=== PATIENT | male | born 1955 | race Caucasian/White ===

== ENCOUNTER → 2019-02-24 | Outpatient (CLI) | payer BC ==
--- NOTE | 2019-02-24 11:49 | CONS ---
CONSULTATION REASON FOR CONSULTATION: Sleep apnea. Angel is 64 and he is coming in to be evaluated for obstructive sleep apnea. His primary care physician is Dr. De La Cruz and he sees the doctor Jonathon Aiken DDS in [place], [place]. The patient has been having loud snoring and he has been quitting breathing on multiple occasions throughout the night and he grinds his teeth. In fact, he has a significant overbite which has caused crowding of the posterior oropharynx. He has had these issues for more than 10 years and he is coming in for further advice regarding this matter. He is very much interested in obtaining an oral appliance if sleep apnea is confirmed that he is working with his primary care physician. His current Ann[place] score is at 8. He goes to bed around midnight and wakes up at 8:30 am in the morning. He sleeps around 8 hours and his Ann[place] score is 3. Does not fall asleep while driving his car or performing routine day-to-day activities. He is healthy and no major comorbidities otherwise for now. PAST MEDICAL HISTORY: Negative. PAST SURGICAL HISTORY: Includes foot surgery. DRUG ALLERGIES: Not known. OUTPATIENT MEDICATIONS: None. SOCIAL HISTORY: The patient drinks 1 cup of coffee. Drinks alcohol socially. No history of substance abuse. No history of alcoholism. He is retired from [employer] and he is currently living in [facility]. FAMILY HISTORY: Negative for sleep apnea. REVIEW OF SYSTEMS: A 14-point review of system was done. No recent weight gain or weight loss. No insomnia. No nocturia. No anxiety or panic attacks, no palpitation, no heartburn or sweating or sleep talking. No sleepwalking. Denies waking up gasping for air. No restlessness in his lower extremities. He grinds his teeth occasionally. No anxiety. No depression. No claustrophobia. PHYSICAL EXAMINATION: BP is 143/90, pulse 74, respirations 14, temperature 98.1, saturation 98% on room air. Height is 5, 11, weight 224, and BMI is 30.8. Neck size is 17-1/4 inch. Annville score is a 3. GENERAL APPEARANCE: Calm, comfortable. HEENT: Atraumatic, normocephalic. NECK: Supple. There is no JVD. No goiter or neck masses. Mallampati class 4 and the patient has significant overbite with poor alignment of his upper and lower jaw. No macroglossia. No micrognathia. LUNGS: Clear to auscultation. HEART: Sounds regular rate and rhythm. Normal S1, S2. No S3, S4. No murmurs. ABDOMEN: Soft, nontender. No organomegaly. EXTREMITIES: No edema. No cyanosis or clubbing. NEUROLOGIC: Alert and oriented x3. There is no focal neurological deficits. PSYCH: Negative for anxiety or depression. SKIN: Negative for any wounds or ulceration. IMPRESSION: 1. Loud snoring with witnessed apneas. Consider obstructive sleep apnea. The patient has significant crowding of posterior pharynx with Mallampati class 4 and significant overbite. 2. Chronic back pain. PLAN: Will proceed with a home sleep study to assess the presence and severity of obstructive sleep apnea. Obviously, the patient has significant overbite and he could potentially benefit from an oral appliance should he be confirmed that he has a mild to moderate obstructive sleep apnea. He is working with a dentist, experiencing fitting these devices. For now, we are going to proceed with a home sleep study and assess the presence of the disease and decide accordingly if he is a candidate for oral device. MMODL / IJN: [id number] /
== END ==
LOC: SLEEP 10:33
PROVIDERS: ATTEND Internal Medicine Critical Care Medicine
DX: R06.83 Snoring (principal); G89.29 Other chronic pain; M54.9 Dorsalgia, unspecified; M26.29 Other anomalies of dental arch relationship
CPT/HCPCS: 99211

== ENCOUNTER 2022-06-07 13:33 | Day surgery (SDC) | payer BC, MEDICARE ==
[2022-06-06 09:41] VITALS: BMI 29.8
--- NOTE | 2022-06-07 13:57 | XR ---
EXAMINATION TYPE: XR KUB DATE OF EXAM: 06/07/2022 COMPARISON: NONE HISTORY: Pain TECHNIQUE: One view abdominal series FINDINGS: The osseous structures are intact. The bowel gas pattern is nonspecific. Hypertrophic change and que stionable postsurgical change lower lumbar spine. There is a faint calcification within pelvis with 2 mm diameter. Calcifications in the right hemipelvis appear vascular. These uropathy involving the il iac crests suspected. Hypertrophic changes of the SI joint on the right. IMPRESSION: 1. Nonspecific abdomen. 2 mm left hemipelvic calcification could be within the course of the left ur eter. Correlate clinically
[2022-06-07] MEDS ORDERED: LACTATED RINGERS 1,000 ML IV ONE ×2 (14:35→17:02)
[2022-06-07] MEDS ORDERED: ONDANSETRON 4 MG/2 ML VIAL IVP ONE (14:36)
[2022-06-07] MEDS ORDERED: ONDANSETRON 4 MG/2 ML VIAL ONE (14:36)
[2022-06-07 14:51] LABS: Potassium 3.9 mmol/L (3.5-5.1)
[2022-06-07] MEDS ORDERED: MIDAZOLAM 2 MG/2 ML VIAL ONE (15:48)
[2022-06-07] MEDS ORDERED: LIDOCAINE 2% INJ 20 MG/ML (2 ML VIAL) ONE (15:48)
[2022-06-07] MEDS ORDERED: PROPOFOL 10 MG/ML 20 ML VIAL IV ONE (15:48)
[2022-06-07] MEDS ORDERED: fentaNYL (PF) 50 MCG/ML 2 ML AMP ONE (15:48)
--- NOTE | 2022-06-07 15:54 | P.HPIHPCON ---
History of Present Illness H&P Date: 06/07/22 Chief Complaint: left ureteral stone this is a 67 yo male with hx of 6 mm left sided mid ureteral stone, he is symptomatic from his stone option of left sided ureteroscopy with holmium laser vs ESWL was discussed with him. He agreed to proceed with left-sided ureteroscopy with holmium laser. Discussed the risk which includes but not limited to bleeding, infection, injury to the ureter. Discussed also risks of anesthesia. He understood all the risk and agreed to proceed Consent for Procedure: I have explained the operation/procedure to the patient, including the risks, benefits, side effects, alternative therapies (including not receiving the proposed treatment or service), the likelihood of the patient achieving his/her goals, and potential recuperation problems for the procedure/sedation/analgesia, as well as any blood products, if indicated. I also explained to the patient the risks, benefits and side effects of the alternatives, as well as the risks related to not receiving the proposed procedure, care, treatment, or services. Past Medical History Past Medical History: Hypertension Additional Past Medical History / Comment(s): Back pain, Hx. of kidney stones in the past History of Any Multi-Drug Resistant Organisms: None Reported Past Surgical History: Back Surgery, Orthopedic Surgery Additional Past Surgical History / Comment(s): 1985- Back surgery with fusion. Foot surgery. Past Anesthesia/Blood Transfusion Reactions: No Reported Reaction Past Psychological History: No Psychological Hx Reported Smoking Status: Never smoker Past Alcohol Use History: Rare Past Drug Use History: None Reported - Past Family History Mother Family Medical History: No Reported History Sister(s) Family Medical History: Cancer Medications and Allergies Home Medications Medication Instructions Recorded Confirmed Type Chlorthalidone 25 mg PO DAILY 06/06/22 06/07/22 History Allergies Allergy/AdvReac Type Severity Reaction Status Date / Time No Known Allergies Allergy Verified 06/07/22 14:39 Surgical - Exam Vital Signs Temp Pulse Resp BP Pulse Ox 98.3 F 63 20 122/82 98 06/07/22 14:29 06/07/22 14:29 06/07/22 14:29 06/07/22 14:29 06/07/22 14:29 - General no distress, moderate pain - Eyes normal ocular movement, no pale - ENT normal nares, normal mucosa - Respiratory normal expansion, normal respiratory effort - Abdomen Abdomen: soft, non tender Results - Labs 06/07/22 Unknown Diabetes panel 06/07/22 Range/Units Unknown Sodium 139 (137-145) mmol/L Potassium 3.9 (3.5-5.1) mmol/L Chloride 102 (98-107) mmol/L Carbon Dioxide 28 (22-30) mmol/L Pituitary panel 06/07/22 Range/Units Unknown Sodium 139 (137-145) mmol/L Potassium 3.9 (3.5-5.1) mmol/L Chloride 102 (98-107) mmol/L Carbon Dioxide 28 (22-30) mmol/L Adrenal panel 06/07/22 Range/Units Unknown Sodium 139 (137-145) mmol/L Potassium 3.9 (3.5-5.1) mmol/L Chloride 102 (98-107) mmol/L Carbon Dioxide 28 (22-30) mmol/L Assessment and Plan Assessment: OR for left-sided ureteroscopy, holmium laser lithotripsy, stone basketing and stent insertion
[2022-06-07] MEDS ORDERED: IOPAMIDOL-370 50ML BTL MISCELLANE ONE ×2 (16:17)
--- NOTE | 2022-06-07 16:42 | P.OP ---
Date of Procedure: 06/07/22 Preoperative Diagnosis: Left ureteral stone Postoperative Diagnosis: Same Procedure(s) Performed: Cystoscopy, left ureteroscopy, holmium laser lithotripsy, stone basketing and stent insertion Implants: 6-Guinean by 26 cm stent in the left ureter Anesthesia: HUSSEIN Surgeon: Gabriel Lakhani Estimated Blood Loss (ml): 5 Pathology: other (left ureteral stone) Condition: stable Disposition: PACU Indications for Procedure: this is a 67 yo male with hx of 6 mm left sided mid ureteral stone, he is symptomatic from his stone option of left sided ureteroscopy with holmium laser vs ESWL was discussed with him. He agreed to proceed with left-sided ureteroscopy with holmium laser. Discussed the risk which includes but not limited to bleeding, infection, injury to the ureter. Discussed also risks of anesthesia. He understood all the risk and agreed to proceed Operative Findings: left distal ureteral stone Description of Procedure: Patient brought to the operating room, general anesthesia was induced. He was prepped and draped so fashion a placement dorsal lithotomy position. Cystoscopy fitted 21-Guinean sheath was inserted per urethra, cystoscopy was performed which showed no abnormality within the bladder. Attention was then carried to the left ureteral orifice. Patient had a narrowed left ureteral orifice, this time a sensor wire was advanced through the scope and up the left ureteral orifice. Next a 15-[place]inean ureteral balloon dilator was passed over the wire and the distal ureter was dilated using the balloon dilator. A semirigid ureteroscope was inserted through the urethra and advanced up the left ureteral orifice. Stone was encountered in the distal ureter. Using the holmium laser the stone was fragment small fragments, sizable fragments were removed using the stone basket. At this time the ureteroscope was advanced all the way up to the UPJ which showed no additional stones. Pullback ureteroscopy was performed showed no injury to the ureter or any sizable fragments. Of note there was ureteral edema at the site of the stone. As the ureteroscope was withdrawn and a sensor wire was advanced through. Next a ureteral stent was passed over the wire, the proximal curl was visualized on fluoroscopy and the distal curl was visualized using the cystoscope. The bladder was emptied at the end of the case, the stones were sent for analysis. Patient tolerated procedure well was taken to recovery in stable condition
[2022-06-07 16:50] VITALS: RESP 16; TEMP 97
[2022-06-07 17:33] VITALS: PULSE 50
[2022-06-07 17:43] VITALS: BP 136/82
--- NOTE | 2022-06-08 08:05 | FL ---
EXAMINATION TYPE: FL guidance operating room DATE OF EXAM: 06/07/2022 HISTORY: Fluoroscopy time 12 seconds of fluoroscopy provided. IMPRESSION: 1. Fluoroscopy time.
== END 2022-06-07 17:55 | disposition home or self-care (01) ==
LOC: OR 13:33
PROVIDERS: ATTEND Urology
DX: N20.2 Calculus of kidney with calculus of ureter (principal); I10 Essential (primary) hypertension; G47.33 Obstructive sleep apnea (adult) (pediatric); Z98.890 Other specified postprocedural states; Z79.899 Other long term (current) drug therapy
CPT/HCPCS: 80051; 82365; 74018; 52356; C2625; C1769; J2250; J0690; J2405; J3010; J2704; Q9967; J2001